=== PATIENT | male | born 2000 | race Two or more races ===

== ENCOUNTER 2025-11-09 07:24 | Emergency (ER) | payer BC ==
[~2025-11-09] VITALS: Ht 175.3 cm; Wt 95.3 kg
[2025-11-09] MEDS ORDERED: LIDOCAINE VISCOUS 2% UD 15 ML UDC ONE (07:46)
[2025-11-09] MEDS ORDERED: MAG HYDROX/AL HYDROX/SIMETH 30 ML UDC ONE (07:46)
[2025-11-09] MEDS ORDERED: ONDANSETRON HCL/PF 4 MG/2 ML VIAL ONE (07:46)
[2025-11-09] MEDS ORDERED: FAMOTIDINE/PF INJ 20 MG/2 ML VIAL IV ONE (07:47)
[2025-11-09] MEDS: IV NS 0.9% 1,000 ML BAG IV ONE (07:57)
[2025-11-09] MEDS: FAMOTIDINE/PF INJ 20 MG/2 ML VIAL IV ONE (07:58)
[2025-11-09] MEDS: MAG HYDROX/AL HYDROX/SIMETH 30 ML UDC PO ONE (07:58)
[2025-11-09] MEDS: LIDOCAINE VISCOUS 2% UD 15 ML UDC MM ONE (07:58)
[2025-11-09] MEDS: ONDANSETRON HCL/PF 4 MG/2 ML VIAL IVP ONE (07:58)
[2025-11-09 08:12] LABS: PLATELET COUNT (AUTO) 183 K/uL (150-450); RED BLOOD CELL COUNT(AUTO) 4.02 MIL/uL (4.5-6.0); RED CELL DISTRIBUTION WIDTH 12.6 % (11.5-15.0); WHITE BLOOD COUNT (AUTO) 6.5 K/uL (4.3-11.0)
[2025-11-09 08:19] LABS: CALCIUM, SERUM 8.5 mg/dL (8.5-10.1); CREATININE 1.1 mg/dL (0.6-1.3); SODIUM SERUM 142.0 mmol/L (136-145); UREA NITROGEN, BLOOD 19.0 mg/dL (7-18)
[2025-11-09 08:24] LABS: ASPARTATE AMINOTRANSFERASE 16.0 U/L (15-37); TOTAL PROTEIN, SERUM 7.4 g/dL (6.4-8.2)
[2025-11-09 09:31] LABS: APPEARANCE,URINE CLEAR (CLEAR); BLOOD, URINE NEGATIVE Ery/uL (NEGATIVE); LEUKOCYTE ESTERASE ,URINE NEGATIVE (NEGATIVE); NITRITE, URINE NEGATIVE (NEGATIVE); UGLUCOSE NEGATIVE (NEGATIVE)
[2025-11-09] MEDS ORDERED: FAMO-131 PO (09:36)
[2025-11-09] MEDS ORDERED: ONDA4TAB5 PO (09:36)
[2025-11-09 09:51] VITALS: BP 120/78; TEMP 98.3; O2SAT 99
== END 2025-11-09 09:51 | disposition home or self-care (01) ==
LOC: ER 07:33
DX: R19.7 Diarrhea, unspecified (principal); R11.0 Nausea; Z60.2 Problems related to living alone
CPT/HCPCS: 99285; 96374; 76705; 96361; 96375; 93005; 85025; 80048; 83690; 80076; 81003; 36415; J1308; J2405; J7030